=== PATIENT | male | born 1980 | race Caucasian/White ===

== ENCOUNTER 2018-08-11 01:31 | Outpatient (CLI) | payer OTHER, SELFPAY ==
--- NOTE | 2018-08-11 09:44 | DI.MRI_ITS ---
SYMPTOM/DIAGNOSIS: LUMBAR STRAIN WITH JERED LE TINGLING TO FOOT MRI LUMBAR SPINE: There are no prior comparison exams. T1, T2 and stir sagittal, T1 and T2 axial sequences were performed. The vertebral bodies are well maintained in height. The marrow signal is normal. Conus medullaris appears intact. At T-12, L1 there is a small focal disc protrusion slightly eccentric toward the left. There is mild disc bulging at L1-2. The L2-3 and L3-4 discs have a normal appearance. At L4-5, there is mild posterior disc bulging. At L5-S1, there is mild broad-based disc bulging slightly eccentric toward the left. There is no significant neural foraminal narrowing or central canal stenosis at any level. There are no significant facet joint degenerative changes. IMPRESSION: Mild degenerative disc changes at T12-L1, L1-2, L4-5 and L5-S1.
== END 2018-08-11 01:51 ==
PROVIDERS: Visit Provider Nurse Practitioner Family
DX: S39.012A Strain of muscle, fascia and tendon of lower back, initial encounter (principal); R20.2 Paresthesia of skin; M51.37 Other intervertebral disc degeneration, lumbosacral region
CPT/HCPCS: 72148

== ENCOUNTER 2019-05-07 17:14 | Emergency (ER) | payer OTHER, SELFPAY ==
[2019-05-07 17:41] VITALS: BP 136/83; PULSE 79; RESP 16; TEMP 36.4; O2SAT 97
[2019-05-07 18:48] LABS: Abs Immature Grans 0.03 k/cumm (0.0-0.09); Absolute Basophil Count 0.06 k/cumm (0.0-0.2); Absolute Eosinophil Count 0.35 k/cumm (0.0-0.7); Absolute Lymphocyte Count 2.92 k/cumm (1.2-3.4); Absolute Monocyte Count 0.77 k/cumm (0.11-0.7); Absolute Neutrophil Count 6.96 k/cumm (1.2-6.7); Basophils % 0.5; Eosinophils % 3.2; HCT 47.4 % (40.0-50.0); HGB 16.6 g/dL (13.5-17.5); Immature Grans % 0.3; Lymphocytes % 26.3; Mean Corpuscular Hemoglobin 31.6 pg (27.0-33.0); Mean Corpuscular Volume 90.1 fL (80-95); Monocytes % 6.9; Neutrophils % 62.8; Platelet Count 257 x1000/uL (130-400); RBC 5.26 m/cumm (4.50-6.00); RBC Distribution Width 13.6 % (11.8-14.1); White Blood Cell Count 11.09 k/cumm (4.4-10.8)
[2019-05-07] MEDS: Omnipaque 350 MG/ML 100 ML BTL IJ (18:57)
[2019-05-07 19:02] LABS: ALT 63 U/L (12-78); AST 31 U/L (15-37); Albumin 3.9 g/dL (3.4-5.0); Alkaline Phosphatase 99 U/L (46-116); Anion Gap 9.4 mmol/L (3-11); BUN 13 mg/dL (7-18); Bilirubin, Total 0.8 mg/dL (0.2-1.0); CO2 27.6 mmol/L (21.0-32.0); Calcium 8.5 mg/dL (8.5-10.1); Chloride 104 mmol/L (98-107); Glucose 96 mg/dL (70-100); Potassium 3.8 mmol/L (3.5-5.1); Sodium 141 mmol/L (136-145)
[2019-05-07] MEDS: Lidocaine 2% Viscous 15 ML CUP PO (19:04)
--- NOTE | 2019-05-07 19:07 | DI.CT_ITS ---
SYMPTOM/DIAGNOSIS: FB SENSATION AND THROAT PAIN X [address] NECK: CT scan of the neck was performed following the uneventful administration of intravenous contrast material. There are no priors. The visualized intracranial structures are unremarkable as are the orbits and retro orbital soft tissues. There is mild mucosal thickening seen in the maxillary sinuses bilaterally. The remaining visualized paranasal sinuses are clear as are the mastoid air cells. No fluid levels are present. There is mild mucosal thickening seen in the oral pharynx and hypopharynx with prominence of the uvula which appears edematous. The nasopharynx and larynx appear unremarkable. The retropharyngeal space is unremarkable. The submandibular, parotid and thyroid glands are all unremarkable. The lung apices are clear. No significant cervical adenopathy is appreciated. No focal fluid collection or soft tissue mass is appreciated. No acute osseous abnormality is identified. No radiopaque foreign bodies are identified. IMPRESSION: No evidence of a radiopaque foreign body 2. Mild mucosal thickening involving the oral pharynx, hypopharynx with an edematous appearing uvula. This may represent an acute pharyngitis. No focal fluid collection is seen to suggest abscess.
--- NOTE | 2019-05-07 19:59 | DI.VRAD_ITS ---
EXAM: CT Neck With Contrast EXAM DATE/TIME: 05/07/2019 6:36 PM CLINICAL HISTORY: 38 years old, male; Other: Fb sensation and throat pain [id number] TECHNIQUE: Imaging protocol: Axial computed tomography images of the neck with intravenous contrast. Radiation optimization: All CT scans at this facility use at least one of these dose optimization techniques: automated exposure control; mA and/or kV adjustment per patient size (includes targeted exams where dose is matched to clinical indication); or iterative reconstruction. Contrast material: [id number]; Contrast volume: 100 ml; Contrast route: IV LT AC 20G; COMPARISON: No relevant prior studies available. FINDINGS: Orbits: The globes and intraorbital structures appear grossly intact. Sinuses: There is minimal mucoperiosteal thickening at the floor of the right maxillary sinus. Otherwise, the paranasal sinuses appear clear. Nasopharynx: The nasopharynx appears normal. Oropharynx: The oropharynx appears normal. There is mild symmetric prominence of the tonsillar lymph nodes. There is mild circumferential mucosal thickening in the oropharynx. Hypopharynx: There is mild circumferential mucosal thickening in the hypopharynx. Larynx: The epiglottis appears normal. The larynx appears normal. Retropharyngeal space: No retropharyngeal fluid collection is demonstrated. Submandibular/Parotid glands: The submandibular salivary glands and parotid glands appear symmetric. Thyroid: The thyroid cartilage, cricoid cartilage, and arytenoid cartilages appear intact. Lymph nodes: No pathologically enlarged cervical chain lymph nodes are demonstrated. Trachea: The trachea appears normal. Esophagus: The visualized portion of the proximal esophagus appears normal. Lungs: Lung apices appear clear. Vasculature: The examination was not tailored to evaluate the vascular structures of the neck; however, the carotid arteries and jugular veins appear grossly patent, as seen. The vertebral arteries are partially obscured and not well evaluated but appear grossly patent, as seen. Auditory system: The middle ear cavities appear clear. Mastoid air cells: The mastoid air cells appear clear. Bones/joints: The hyoid bone appears intact. No acute fracture is identified. Soft tissues: The uvula appears edematous. IMPRESSION: 1. No radiopaque foreign body identified. 2. Mild circumferential mucosal thickening in the oropharynx and hypopharynx. Edematous appearing uvula. Acute pharyngitis could have this appearance. Clinical correlation and correlation with physical exam recommended. 3. Mild symmetric prominence of the tonsillar lymph nodes. Prior or recurrent tonsillitis can produce this appearance although acute tonsillitis could have an identical appearance. Dictated and Authenticated by: Miguel Vera MD. Ordering:KAYLEY Goodman MD
--- NOTE | 2019-05-07 20:20 | ED.GENADUL_ITS ---
Discharge Plan Disposition Patient Disposition: HOME Condition: Good Discharge Details Chief Complaint: Sorethroat Clinical Impression: Acute sore throat, Globus sensation Primary Care Provider: None,None ED Provider: Rex Ramos Home Meds and New Rx's Prescriptions: No Action ibuprofen 800 mg tablet 800 mg PO TID Qty: 42 RF: 0 acetaminophen 500 mg tablet 1,000 mg PO TID PRN (Reason: pain) Qty: 1 RF: 0 cyclobenzaprine 5 mg tablet 5 mg PO TID PRN (Reason: muscle spasm) Qty: 28 RF: 0 omeprazole 20 MG tablet,delayed release (DR/EC) 20 mg PO DAILY RF: 0 Discharge Instructions Additional Instructions: Your CT scan shows no evidence of significant foreign body or mass in your lower throat. Does show some inflammation in your upper throat but your strep test is negative. I do feel that you need to be seen by an ear nose throat doctor for f urther visualization of your throat and airway. We will set up a follow-up for you with them. If you notice any worsening of your symptoms, or any new symptoms such as vomiting, diarrhea, fever, chills, shortness of breath, chest pain, numbness, weakness, or fainting , please return immediately to the emergency department for reevaluation. Please follow up with your primary care provider as soon as possible for reassessment and reevaluation. As always, it was a pleasure participating in your medical care today. Discharge Data Discharge Date/Time-TO BE ENTERED AT DEPARTURE: 05/07/19 20:30 Medical Decision Making This is a pleasant 38-year-old male with a past medical history of chronic tobacco and oral tobacco use. He presents today for one-month of sore throat and globus sensation. He is able to eat and drink well but states that he does have to take slightly smaller bites. He describes the pain as being just below the vocal admit to some chronic enlargement of his tonsils but states that he has no issues there at this time. Physical exam demonstrates slight enlargement of tonsils, no tonsillar exudates, no erythema in the posterior oropharynx. Neck exam demonstrates an otherwise clear airway, no stridor, no evidence of Roque's angina. Symptoms as described by the patient are just below the vocal cords. Because of the location of the symptoms, and the chronicity mass and tumor was certainly on the differential. CT scan with contrast was ordered demonstrates no evidence of acute process in the area of concern. Virtual radiology does make mention of slight tonsillar and uvular enlargement, however this does not correlate clinically with an acute episode of upper pharyngitis. His symptoms on exam are unremarkable in the posterior oropharynx at this time. And on reassessment of the patient he continues to make absolutely clear that he has no symptoms of pain or difficulty swallowing up they are in that region. With the benign imaging, I do feel that further evaluation is indicated. With a notable proximal component of his symptoms I do feel that follow-up with the ENT would be most beneficial first or evaluation with fiberoptic scoping. recommend continued soft diet, NSAIDs as needed, Cessation of tobacco products. I have extensively reviewed the treatment plan and discharge instructions with the patient. I have addressed all patient concerns at this time. The patient was made aware of what symptoms to monitor for that would warrant a return to the emergency department. Discussed the plan with the patient, they demonstrate verbal understanding and agreement with our assessment and plan at this time. FINDINGS: Orbits: The globes and intraorbital structures appear grossly intact. Sinuses: There is minimal mucoperiosteal thickening at the floor of the right maxillary sinus. Otherwise, the paranasal sinuses appear clear. Nasopharynx: The nasopharynx appears normal. Oropharynx: The oropharynx appears normal. There is mild symmetric prominence of the tonsillar lymph nodes. There is mild circumferential mucosal thickening in the oropharynx. Hypopharynx: There is mild circumferential mucosal thickening in the hypopharynx. Larynx: The epiglottis appears normal. The larynx appears normal. Retropharyngeal space: No retropharyngeal fluid collection is demonstrated. Submandibular/Parotid glands: The submandibular salivary glands and parotid glands appear symmetric. Thyroid: The thyroid cartilage, cricoid cartilage, and arytenoid cartilages appear intact. Lymph nodes: No pathologically enlarged cervical chain lymph nodes are demonstrated. Trachea: The trachea appears normal. Esophagus: The visualized portion of the proximal esophagus appears normal. Lungs: Lung apices appear clear. Vasculature: The examination was not tailored to evaluate the vascular structures of the neck; however, the carotid arteries and jugular veins appear grossly patent, as seen. The vertebral arteries are partially obscured and not well evaluated but appear grossly patent, as seen. Auditory system: The middle ear cavities appear clear. Mastoid air cells: The mastoid air cells appear clear. Bones/joints: The hyoid bone appears intact. No acute fracture is identified. Soft tissues: The uvula appears edematous. IMPRESSION: 1. No radiopaque foreign body identified. 2. Mild circumferential mucosal thickening in the oropharynx and hypopharynx. Edematous appearing uvula. Acute pharyngitis could have this appearance. Clinical correlation and correlation with physical exam recommended. 3. Mild symmetric prominence of the tonsillar lymph nodes. Prior or recurrent tonsillitis can produce this appearance although acute tonsillitis could have an identical appearance. Thank you for allowing us to participate in the care of your patient. Dictated and Authenticated by: Miguel Vera MD [facility] General Date/Time Provider Initiated Documentation: 05/07/19 17:48 . [facility] Narrative: This is a pleasant 38-year-old male who presents for 1 month of sore t hroat, and globus sensation in his lower throat. Patient states that the symptoms have been continuous, but have been slightly worsening. He feels that he has been eating less because of the sensation. but he is able to get down solids and liquids fine without any significant difficulty. He denies any fevers, chest pain, burning sensation in his chest, headache, numbness, tingling, or weakness. He denies any history or family history of significant cardiac disease. He has taken some Tylenol and Motrin and this is not significantly improved his symptoms. He does smoke tobacco and chew tobacco as well. The patient is very clear to differentiate that he does not have any pain in his posterior oropharynx. He denies any runny nose or congestion symptoms. He does state that he has a history of slight tonsillar enlargement, but denies any problems currently in that area. He has no other complaints at this time. No other modifying factors. Related Data Home Medications Medication Instructions Recorded Confirmed omeprazole 20 mg PO DAILY 07/31/13 08/05/18 acetaminophen 500 mg tablet 1,000 mg PO TID PRN #1 tab 07/10/18 08/05/18 cyclobenzaprine 5 mg tablet 5 mg PO TID PRN #28 tab 07/10/18 08/05/18 ibuprofen 800 mg tablet 800 mg PO TID #42 tab 07/10/18 08/05/18 Previous Rx's Medication Instructions Recorded acetaminophen 500 mg tablet 1,000 mg PO TID PRN #1 tab 07/10/18 cyclobenzaprine 5 mg tablet 5 mg PO TID PRN #28 tab 07/10/18 ibuprofen 800 mg tablet 800 mg PO TID #42 tab 07/10/18 Allergies Allergy/AdvReac Type Severity Reaction Status Date / Time No Known Allergies Allergy Unverified 05/07/19 17:43 General Stated Complaint: Sorethroat NENITA: 4 Review of Systems Review of Systems All systems reviewed & are unremarkable except as noted in HPI and below PFSH Surgical History Cholecystectomy (04/24/12) Social History (Updated 08/27/18 @ 10:19 by Jenny Milton NP) Smoking/Tobacco Use Status: Current every day Drug use: Never Household members: spouse 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 3.ENT: Atraumatic external nose and ears. Moist MM. Neck: Symmetric, trachea midline, No thyromegaly. Minimal tonsillar enlargement bilaterally, no significant erythema, or tonsillar exudates in the posterior oropharynx. Neck demonstrates no appreciable mass. No concerning evidence of ludwigs angina or asymmetry. Patient demonstrates good movement of cervical neck. There is no nuchal rigidity, no nuchal tenderness. Patient is able to flex the neck without any difficulty or significant pain. Negative Kernig's and Brudzinski sign. When patient points to the pain in the sensation he points directly to the area below the vocal cords. 4.CVS: +S1/S2, No murmurs or gallops. Peripheral pulses 2+ and equal in all extrem ities. Brisk capillary refill in all extremities. 5.RESP: Unlabored respiratory effort. Clear to auscultation bilaterally. No wheezes rales or rhonchi, no stridor 6.GI: Soft, Nontender/Nondistended, No hepatosplenomegaly. No guarding or jeannine ound. 7.MSK: Normocephalic/Atraumatic, Extremities w/o deformity or ttp No cyanosis or clubbing, Normal movement of all extremities 8.Skin: Warm, Dry. No rashes or lesions. 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 Sensation grossly intact, no focal neurologic deficits. 10.Psych: (AAO) x3. Appropriate mood and affect Course Vital Signs Temperature 36.4 C L 05/07/19 17:41 Pulse 79 05/07/19 17:41 Respiratory Rate 16 05/07/19 17:41 Blood Pressure 136/83 05/07/19 17:41 Pulse Oximetry 97 05/07/19 17:41 Temperature 36.4 C L 05/07/19 17:41 Temperature Source Skin 05/07/19 17:41 Pulse 79 05/07/19 17:41 Respiratory Rate 16 05/07/19 17:41 Respiratory Effort 05/07/19 19:20 Blood Pressure 136/83 05/07/19 17:41 Blood Pressure Position Sitting 05/07/19 17:41 Pulse Oximetry 97 05/07/19 17:41 Oxygen Delivery Method Room Air 05/07/19 17:41 Oxygen Flow Rate 0 05/07/19 17:41 Pain Level 5 05/07/19 17:41 Comment 05/07/19 17:41 Lab/Test Results Lab/Test Results: 05/07/19 17:45 Pharynx Streptococcus Screen (FABIAN) - Pending Laboratory Tests Range/Units 05/07/19 05/07/19 18:42 18:42 WBC (4.4-10.8) k/cumm 11.09 H RBC (4.50-6.00) m/cumm 5.26 Hgb (13.5-17.5) g/dL 16.6 Hct (40.0-50.0) % 47.4 MCV (80-95) fL 90.1 MCH (27.0-33.0) pg 31.6 MCHC (32.0-36.0) g/dL 35.0 RDW (11.8-14.1) % 13.6 Plt Count (130-400) x1000/uL 257 MPV (8.0-11.0) fL 10.0 Immature Gran % 0.3 Neutrophils % 62.8 Lymphocytes % 26.3 Monocytes % 6.9 Eosinophils % 3.2 Basophils % 0.5 Absolute Neutrophils (1.2-6.7) k/cumm 6.96 H Absolute Lymphocytes (1.2-3.4) k/cumm 2.92 Absolute Monocytes (0.11-0.7) k/cumm 0.77 H Absolute Eosinophils (0.0-0.7) k/cumm 0.35 Absolute Basophils (0.0-0.2) k/cumm 0.06 Sodium (136-145) mmol/L 141 Potassium (3.5-5.1) mmol/L 3.8 Chloride (98-107) mmol/L 104 Carbon Dioxide (21.0-32.0) mmol/L 27.6 Anion Gap (3-11) mmol/L 9.4 BUN (7-18) mg/dL 13 Creatinine (0.70-1.30) mg/dL 1.10 Estimated GFR/1.73 m2 (mL/min/1.73m2) >= 60.00 Glucose (70-100) mg/dL 96 Calcium (8.5-10.1) mg/dL 8.5 Total Bilirubin (0.2-1.0) mg/dL 0.8 AST (15-37) U/L 31 ALT (12-78) U/L 63 Alkaline Phosphatase (46-116) U/L 99 Total Protein (6.4-8.2) g/dL 8.0 Albumin (3.4-5.0) g/dL 3.9 POC Strep Test-RICKY(Rapid) Start: 05/07/19 17:43 Freq: Status: Active Protocol: Document 05/07/19 18:40 CT (Rec: 05/07/19 18:40 CT [id number]) Strep test-RICKY(Rapid)-POC POC-Strep test-RICKY (Rapid) Negative POC-Strep test-RICKY (Rapid) Negative
[2019-05-07 20:34] VITALS: BP 136/84; PULSE 72; RESP 16; O2SAT 96
== END 2019-05-07 20:30 | disposition home or self-care (01) ==
PROVIDERS: Emergency Provider Student in an Organized Health Care Education/Training Program
DX: J02.9 Acute pharyngitis, unspecified (principal); F45.8 Other somatoform disorders
CPT/HCPCS: 36415; 70491; 80053; 87880; 99285; 85025; 87081; 99284; J3490

== ENCOUNTER 2019-09-24 07:56 | Emergency (ER) | payer OTHER, SELFPAY ==
[2019-09-24 07:59] VITALS: BP 149/83; PULSE 115; RESP 15; TEMP 37; O2SAT 100
--- NOTE | 2019-09-24 08:14 | ED.GENADUL_ITS ---
Discharge Plan Disposition Patient Disposition: HOME Condition: Stable Discharge Details Chief Complaint: Fever Clinical Impression: URI (upper respiratory infection), Chills Primary Care Provider: Vania Ghotra ED Provider: Mulugeta Chaidez Home Meds and New Rx's Prescriptions: Continued pantoprazole 40 mg tablet,delayed release (DR/EC) 40 mg PO DAILY RF: 0 lisinopril 5 mg tablet 5 mg PO DAILY Qty: 90 RF: 1 Discharge Instructions Additional Instructions: drink fluids to stay hydrated if you are not better by Saturday follow up with your primary care provider if you feel more ill, have shortness of breath or persistent vomit return to the emergency department Medical Decision Making 38 yo male with hx of gerd and htn comes in with a day of feeling subjective fevers, chills and general weakness. He states around NEw years he had similar sympoms but felt better in 2 days but had recurrent symptoms starting yesterday. HAsn't actually checked his temp. Denies severe headaches, neck stiffness, rashes, recent travel, vomit, urinary symptoms, changes in bowels, ivdu, cough. He is in no distress on exam, no meningismus, normal oropharynx, no murmurs, no rashes ,clear lungs. Could be simple uri but will obtain lab work to eval for anemia and also cxr to eval for pna and check for influenza. Has no findings to suggest tank filler infection and is afebrile here and appears well ssytemically so doubt sepsis. pt's labs and imaging show no significant pathology, I suspect viral uri. Remai ns hd stable. Will d/c home advised if not better by next week see pcp and return precautions given Differential Diagnosis Differential Diagnosis: pna, uri, influenza Medical Records Medical records reviewed: Yes I reviewed the patient's medical records. Imaging Data Radiologic Study: Attestation: I personally reviewed and interpreted this imaging study as follows: Imaging: X-Ray My impression: no acute findings Lab Data Lab results reviewed: Yes I reviewed the patient's lab results. HPI General Mode of arrival: ambulatory . Date/Time Provider Initiated Documentation: 09/24/19 07:58 . Limitations to Documentation: no limitations . Information obtained by: patient . History of Present Illness 38 year old M presents to the emergency department with the chief complaint of chills, described as moderate, and it has been constant. No relieving factors improve symptom(s), No exacerbating factors reported . Patient did receive the following treatments prior to arrival, none Related Data Home Medications Medication Instructions Recorded Confirmed lisinopril 5 mg tablet 5 mg PO DAILY #90 tab 08/05/19 09/24/19 pantoprazole 40 mg tablet,delayed 40 mg PO DAILY 08/05/19 09/24/19 release Previous Rx's Medication Instructions Recorded lisinopril 5 mg tablet 5 mg PO DAILY #90 tab 08/05/19 Allergies Allergy/AdvReac Type Severity Reaction Status Date / Time No Known Allergies Allergy Unverified 09/24/19 08:02 General Stated Complaint: Fever NENITA: 3 Review of Systems All systems reviewed & are unremarkable except as noted in HPI and below Cardiovascular Cardiovascular: Denies chest pain and Denies dyspnea Respiratory Respiratory: Denies cough and Denies dyspnea Gastrointestinal Gastrointestinal: Denies abdominal pain, Denies nausea and Denies vomiting Musculoskeletal Musculoskeletal: Denies joint swelling PFS Social History Smoking/Tobacco Use Status: Current every day Smokeless tobacco user: chewing tobacco Alcohol Intake: current Alcohol Intake frequency: a few times a week Drug use: Never Substance use type: does not use Adopted: No Caregiver/Support person: No Foster care: No Household members: spouse and children Housing: house Number of Children: 2 Communication Needs: Corrective Lenses Education Level: high school Details: 11th Do you need help understanding health information?: Rarely 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, [employer] Sexually active: Yes Do you think of yourself as: straight/heterosexual Current gender identity: male What type of physical activity do you participate in: walking and other Details: lots of walking at work Seatbelt use: sometimes Helmet use: Yes Drive intox or ride w/intox van driver: No Water heater temp set <120 deg: No Working smoke detector in home: Yes Fire extinguisher in home: Yes Carbon monox detector in home: Yes Firearms in home: Yes Firearms unloaded and locked: Yes Do you feel safe at home: Yes Do you feel safe in your relationship?: Yes Exam Const General: no acute distress Orientation: alert HENMT Head: normal to inspection Ears: external ears normal General nose exam: external nose normal Mouth: moist mucous membranes Eyes General: appearance normal, both eyes and all related structures Neck Neck: normal visual inspection Resp Effort & Inspection: normal respiratory effort and able to speak in complete sentences Cardio Rate: regular rate Skin General skin exam: no rashes or lesions noted Neuro General: alert and oriented x3 Extrem General: normal to inspection Psych Mental Status: mental status grossly normal Course Vital Signs Vital signs: Vital Signs Temperature 37.0 C 09/24/19 07:59 Pulse 115 H 09/24/19 07:59 Respiratory Rate 15 09/24/19 07:59 Blood Pressure 149/83 H 09/24/19 07:59 Pulse Oximetry 100 09/24/19 07:59 Temperature 37.0 C 09/24/19 07:59 Temperature Source Oral 09/24/19 07:59 Pulse 115 H 09/24/19 07:59 Respiratory Rate 15 09/24/19 07:59 Respiratory Effort Non-Labored 09/24/19 08:02 Blood Pressure 149/83 H 09/24/19 07:59 Blood Pressure Position Sitting 09/24/19 07:59 Pulse Oximetry 100 09/24/19 07:59 Oxygen Delivery Method Room Air 09/24/19 07:59 Oxygen Flow Rate 0 09/24/19 07:59 Pain Level 5 09/24/19 07:59
[2019-09-24] MEDS: Normal Saline Flush 10 ML SYR IVP (08:31)
[2019-09-24] MEDS: Acetaminophen 500 MG TAB 1000 MG PO (08:31)
--- NOTE | 2019-09-24 08:33 | DI.RAD_ITS ---
EXAM: XR CHEST 2V PA LATERAL XR CHEST 2V PA LATERAL CLINICAL HISTORY: fever fever TECHNIQUE: 2D digital imaging was performed. COMPARISON: RIGHT RIBS PA CXR-3 VIEWS from 08/17/2017 FINDINGS: The heart is not enlarged. The lungs are clear and well expanded. No pleural effusion seen. Mediastin al contours appear intact. IMPRESSION: Normal chest
[2019-09-24 08:36] LABS: BE (Venous) 2.6 mmol/L (-3-3); HCO3 (Venous) 27 mmol/L (22-28); O2 Sat (Venous) 76 % (70-80); TCO2 (Venous) 23 mmol/L (22-29); pCO2 (Venous) 42 mm/Hg (34-47); pH (Venous) 7.41 (7.32-7.43); pO2 (Venous) 38 mm/Hg (28-44)
[2019-09-24 08:39] LABS: Lactate 0.9 mmol/L (0.6-1.4)
[2019-09-24 08:41] LABS: Abs Immature Grans 0.05 k/cumm (0.0-0.09); Absolute Basophil Count 0.04 k/cumm (0.0-0.2); Basophils % 0.3; Eosinophils % 1.6; HCT 46.8 % (40.0-50.0); HGB 16.3 g/dL (13.5-17.5); Immature Grans % 0.4 %; Mean Corp. HGB Concentration 34.8 g/dL (32.0-36.0); Mean Corpuscular Hemoglobin 30.9 pg (27.0-33.0); Mean Corpuscular Volume 88.8 fL (80-95); Mean Platelet Volume 9.1 fL (8.0-11.0); Neutrophils % 76.7; Platelet Count 261 x1000/uL (130-400); RBC 5.27 m/cumm (4.50-6.00); RBC Distribution Width 13.7 % (11.8-14.1); White Blood Cell Count 12.83 k/cumm (4.4-10.8)
[2019-09-24 08:43] LABS: Absolute Eosinophil Count 0.21 k/cumm (0.0-0.7); Absolute Neutrophil Count 9.84 k/cumm (1.2-6.7)
[2019-09-24 08:53] LABS: ALT 52 U/L (16-63); AST 21 U/L (15-37); Albumin 3.8 g/dL (3.4-5.0); Alkaline Phosphatase 91 U/L (46-116); Anion Gap 8.2 mmol/L (3-11); BUN 11 mg/dL (7-18); CO2 27.8 mmol/L (21.0-32.0); CREATININE 0.94 mg/dL (0.70-1.30); Calcium 8.5 mg/dL (8.5-10.1); Chloride 103 mmol/L (98-107); Glucose 99 mg/dL (74-106); Magnesium 1.9 mg/dL (1.8-2.4); Potassium 3.6 mmol/L (3.5-5.1); Sodium 139 mmol/L (136-145); Total Protein 7.9 g/dL (6.4-8.2)
== END 2019-09-24 09:20 | disposition home or self-care (01) ==
PROVIDERS: Emergency Provider Emergency Medicine; PCP Student in an Organized Health Care Education/Training Program
DX: J06.9 Acute upper respiratory infection, unspecified (principal); R68.83 Chills (without fever); I10 Essential (primary) hypertension
CPT/HCPCS: 80053; 82805; 87449; 99283; 71046; 83605; 83735; 85025

== ENCOUNTER 2019-12-22 09:08 | Outpatient (CLI) | payer OTHER, SELFPAY ==
[2019-12-26 00:05] LABS: SARS-CoV-2 RNA Undetected (Undetected); SARS-CoV-2 Specimen Source Nasopharynx
== END 2019-12-22 09:28 ==
PROVIDERS: Family Medicine; PCP Student in an Organized Health Care Education/Training Program; Visit Provider Student in an Organized Health Care Education/Training Program
DX: Z11.59 Encounter for screening for other viral diseases (principal)
CPT/HCPCS: U0003

== ENCOUNTER 2020-07-27 11:54 | Outpatient (REF) | payer OTHER, SELFPAY ==
[2020-07-27 19:49] LABS: Anion Gap 8.8 mmol/L (3-11); BUN 12 mg/dL (7-18); CO2 26.2 mmol/L (21.0-32.0); CREATININE 1.06 mg/dL (0.70-1.30); Calcium 8.7 mg/dL (8.5-10.1); Chloride 106 mmol/L (98-107); Glucose 111 mg/dL (74-106); Potassium 3.9 mmol/L (3.5-5.1); Sodium 141 mmol/L (136-145)
== END 2020-07-27 12:14 ==
LOC: LBN 11:54
PROVIDERS: PCP Student in an Organized Health Care Education/Training Program; Visit Provider Nurse Practitioner Adult Health
DX: I10 Essential (primary) hypertension (principal); R25.2 Cramp and spasm; Z79.1 Long term (current) use of non-steroidal anti-inflammatories (NSAID); Z86.39 Personal history of other endocrine, nutritional and metabolic disease
CPT/HCPCS: 80048; 83735

== ENCOUNTER 2022-04-25 12:59 | Outpatient (CLI) | payer OTHER, SELFPAY ==
--- NOTE | 2022-04-25 11:24 | DI.RAD_ITS ---
Exam(s) XR SHOULDER RT COMPLETE 2+V EXAM: XR SHOULDER RT COMPLETE 2+V CLINICAL HISTORY: evaluate joint space r/o bony path, [id number] , shoulder pain TECHNIQUE: COMPARISON: No exams were available for comparison FINDINGS: Five views were obtained. The cartilaginous joint space of the glenohumeral joint appears fairly wel l maintained. There is mild deformity of the inferior aspect of the glenoid which may represent dennis inal osteophyte formation. Humeral head appears well maintained. Acromioclavicular joint is unremar kable in appearance. IMPRESSION: Inferior glenoid deformity, degenerative versus remote post traumatic. No other significant findings RADIATION DOSE DELIVERED: Total DLP
== END 2022-04-25 13:19 ==
LOC: DI 13:00
PROVIDERS: PCP Student in an Organized Health Care Education/Training Program; Visit Provider Student in an Organized Health Care Education/Training Program
DX: I10 Essential (primary) hypertension (principal); K21.9 Gastro-esophageal reflux disease without esophagitis; M21.921 Unspecified acquired deformity of right upper arm; Z72.0 Tobacco use
CPT/HCPCS: 73030

== ENCOUNTER 2022-04-30 02:43 | Outpatient (CLI) | payer OTHER, SELFPAY ==
[2022-04-30 12:41] LABS: Anion Gap 9.3 mmol/L (3-11); BUN 13 mg/dL (7-18); CO2 25.7 mmol/L (21.0-32.0); CREATININE 1.1 mg/dL (0.70-1.30); Calcium 8.7 mg/dL (8.5-10.1); Chloride 107 mmol/L (98-107); Glucose 127 mg/dL (74-106); Potassium 3.8 mmol/L (3.5-5.1); Sodium 142 mmol/L (136-145)
== END 2022-04-30 02:44 | disposition home or self-care (01) ==
LOC: LBO 02:43
PROVIDERS: PCP Student in an Organized Health Care Education/Training Program; Visit Provider Student in an Organized Health Care Education/Training Program
DX: I10 Essential (primary) hypertension (principal); L40.9 Psoriasis, unspecified
CPT/HCPCS: 36415; 80048; 83036

== ENCOUNTER 2022-05-15 09:52 | Emergency (ER) | payer OTHER, SELFPAY ==
[2022-05-15 09:56] VITALS: BP 138/91; PULSE 80; RESP 18; TEMP 36.9; O2SAT 98
--- NOTE | 2022-05-15 10:30 | DI.RAD_ITS ---
Exam(s) XR KNEE RT 3V AP,LAT,ESTELA EXAM: XR KNEE RT 3V AP,LAT,ESTELA CLINICAL HISTORY: knee pain TECHNIQUE: COMPARISON: CR RIGHT KNEE 3 VIEWS from 12/11/2013 FINDINGS: Three views were obtained. There is mild narrowing of medial tibiofemoral cartilaginous joint space. There is apparent soft tissue swelling of the anterior aspect of the knee, in the prepatellar regio n. There are multiple small osseous bodies projected inferior to the patella, these were present on prior radiographs of November 2013. There is no evidence of acute fracture or dislocation. IMPRESSION: RADIATION DOSE DELIVERED: Total DLP
--- NOTE | 2022-05-15 11:44 | ED.GENADUL_ITS ---
Discharge Plan Disposition Patient Disposition: HOME Condition: Stable Discharge Details Clinical Impression: Acute pain of right knee Primary Care Provider: Vania Ghotra ED Provider: Kodak Santiago Home Meds and New Rx's Prescriptions: New diclofenac potassium 50 mg tablet 50 mg PO TID PRN (Reason: pain) Qty: 15 0RF Continued lisinopril 5 mg tablet 5 mg PO DAILY Qty: 90 1RF Hold Instructions: Changed by Provider Rx Instructions: Trial, start with half tab x 10 days cyclobenzaprine 10 mg tablet 10 mg PO HS PRN (Reason: shldr muscle spasm) Qty: 10 0RF amlodipine 2.5 mg tablet 2.5 mg PO DAILY Qty: 90 3RF pantoprazole 40 mg tablet,delayed release (DR/EC) 40 mg PO DAILY Qty: 90 3RF Discharge Instructions Instructions: Knee Pain (ED) Additional Instructions: Please take prescribed medication as directed you may also use [id number] acetaminophen as needed for any additional relief. Please rest over the next 2 days and slowly increase activity as tolerated. Please use hinged knee brace until your follow-up with orthopedics that was already scheduled. If you develop any new or worsening symptoms return to the emergency department for re assessment. Stand Alone Forms: Work Release Discharge Data Discharge Date/Time-TO BE ENTERED AT DEPARTURE: 05/15/22 12:13 Medical Decision Making Patient presenting to the emergency department for chief complaint of right knee pain. Patient denies any known injury or trauma. Patient has significant past medical history of surgical repair of the right knee due to trauma. Patient has been using NSAIDs with little benefit. He does state that he does significant weightbearing and ambulation for work. Physical exam shows significant tenderness to lateral right knee and infra patellar area mainly with flexion of the thigh. Ligamentous testing shows pain to the lateral ligament but no laxity is noted in the otherwise ligamentous testing is unremarkable. Given patient's history of trauma we will repeat imaging. No acute findings noted on imaging. Will place patient in a hinged knee brace and give patient some time off work to see if this helps with patient's symptoms. Patient otherwise states that he already has scheduled follow-up for reassessment of his knee injury 2 weeks with the [facility]. Will place patient on short course of diclofenac to see if that helps patient's symptoms better otherwise patient to return for new or worsening symptoms. Of notation patient did have significant psoriasis that was diffuse and did involve right knee. There is no underlying signs of infection, no joint swelling, no joint effusion to suspect a infected or septic joint at this time. After discussion of diagnosis and plan of care patient has no further needs, questions, or concerns and states clear understanding to return to the emergency department for any worsening symptoms. This documentation was generated using [employer] dictation system, please disregard any oddities of phrase or misspellings. Imaging Data Radiologic Study: Attestation: I personally reviewed and interpreted this imaging study as follows: Imaging: X-Ray Radiologist's impression: Three views were obtained. There is mild narrowing of medial tibiofemoral cartilaginous joint space. There is apparent soft tissue swelling of the anterior aspect of the knee, in the prepatellar region. There are multiple small osseous bodies projected inferior to the patella, these were present on prior radiographs of November 2013. There is no evidence of acute fracture or dislocation. HPI General Mode of arrival: ambulatory . Date/Time Provider Initiated Documentation: 05/15/22 10:33 . Limitations to Documentation: no limitations . Information obtained by: patient and RN notes reviewed . History of Present Illness 41 year old M presents to the emergency department with the chief complaint of Right knee pain, described as moderate and severe, with intensity rated at 7. Quality is described as aching and sharp, and is localized to the right and lower extremity. Patient reports no radiation. Patient started experiencing this week(s) (3) and it has been constant. Immobilization improves symptom(s), and Rest improves symptom(s), Movement worsens symptoms . Patient notes no other symptoms.. Patient did receive t he following treatments prior to arrival, NSAID Related Data Home Medications Medication Instructions Recorded Confirmed lisinopril 5 mg tablet 5 mg PO DAILY #90 tabs 08/05/19 05/15/22 pantoprazole 40 mg tablet,delayed 40 mg PO DAILY #90 tabs 05/15/21 05/15/22 release amlodipine 2.5 mg tablet 2.5 mg PO DAILY #90 tabs 04/25/22 05/15/22 cyclobenzaprine 10 mg tablet 10 mg PO HS PRN shldr muscle spasm 04/25/22 05/15/22 #10 tabs diclofenac potassium 50 mg tablet 50 mg PO TID PRN pain #15 tabs 05/15/22 Previous Rx's Medication Instructions Recorded lisinopril 5 mg tablet 5 mg PO DAILY #90 tabs 08/05/19 pantoprazole 40 mg tablet,delayed 40 mg PO DAILY #90 tabs 05/15/21 release amlodipine 2.5 mg tablet 2.5 mg PO DAILY #90 tabs 04/25/22 cyclobenzaprine 10 mg tablet 10 mg PO HS PRN shldr muscle spasm 04/25/22 #10 tabs diclofenac potassium 50 mg tablet 50 mg PO TID PRN pain #15 tabs 05/15/22 Allergies Allergy/AdvReac Type Severity Reaction Status Date / Time methotrexate AdvReac Severe sick Verified 05/15/22 10:00 lisinopril AdvReac Mild felt like Verified 05/15/22 10:00 environmental allergies; URI General Stated Complaint: Orthopedic NENITA: 4 Review of Systems Narrative: 6 systems reviewed and unremarkable except what is marked below. Constitutional Constitutional: Denies chills and Denies fever(s) Musculoskeletal Musculoskeletal: Reports as per HPI, Reports arthralgias and Reports stiffness PFSH All Active Problems (Updated 05/15/22 @ 12:02 by Kodak Santiago NP) Acute pain of right knee (Acute) Impingement syndrome of right shoulder (Acute) Infected tooth (Acute) Right shoulder pain (Acute) AC Joint & Posterior .. Limited ROM with lateral swing needed vs vertical flex/ext. Hypertension (Chronic) Hx elevated readings (last 2017) and today. Smoking, Fam Hx (+). Trial small does ACEi with possible increase PRN. Gastroesophageal reflux disease (Acute 07/20/14) Tobacco use (Chronic) Chewing tobacco to cut down on smoking, 05/2021 Cyst of hand (Acute) Encounter for screening for other viral diseases (Acute) Vague symptoms, incl cough, H/A .. COVID NEG, 12/21. Note needed for work stating quarantine was recommended until results/symptoms completed. Hx of bacterial pneumonia (Acute) Accepted PNA Vaccine today, 08/05/19 Back pain of lumbar region with sciatica (Acute) Lumbar Strain per [facility] (Fall 2017); Acts up @ times, but he works through it then stretches @ home. Hiatal hernia (Chronic 07/24/19) ON EGD at [facility] Tonsillar hypertrophy (Acute) Alcohol use (Acute) Psoriasis (Acute 07/20/14) Hx [facility] Derm (?).. poor tolerance of methotrexate (nausea, hyperthermia, ill). [ ] eligible for biologics? Palpitations (Acute 07/20/14) Holter : frequent PVC Medical History (Updated 05/15/22 @ 12:02 by Kodak Santiago NP) Deviated nasal septum Foot fracture, left 2013 Lumbar strain 2012 Right ear pain Tooth #2 repaired and resolved ear pain. 2 mos, thought it was dental, but tooth extraction did not help Surgical History Cholecystectomy (04/24/12) H/O right knee surgery (~11/2013) [facility] Family History Father Skin cancer Depression Hypertension Mother Hypertension Social History Smoking/Tobacco Use Status: Current every day Tobacco Type: cigarettes Smokeless tobacco user: chewing tobacco Smoking risk assessment performed?: Yes Alcohol Intake: current Alcohol Intake frequency: a few times a week Alcohol type: beer and hard liquor Drug use: Never Substance use type: does not use Adopted: No Caregiver/Support person: No Foster care: No Household members: spouse and children Housing: house Number of Children: 2 Communication Needs: Corrective Lenses Education Level: high school Details: 11th Do you need help understanding health information?: Rarely 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, [employer] Sexually active: Yes Do you think of yourself as: straight/heterosexual Current gender identity: male What type of physical activity do you participate in: walking and other Details: lots of walking at work Seatbelt use: sometimes Helmet use: Yes Drive 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 or ride w/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 Water heater temp set <120 deg: No Working smoke detector in home: Yes Fire extinguisher in home: Yes Carbon monox detector in home: Yes Firearms in home: Yes Firearms unloaded and locked: Yes Do you feel safe at home: Yes Do you feel safe in your relationship?: Yes Exam Const General: cooperative, no acute distress and not ill appearing Orientation: alert, awake and oriented x3 Resp Effort & Inspection: normal respiratory effort, able to speak in complete sentences and no respiratory distress Cardio Rate: regular rate Rhythm: regular rhythm Pulses: normal peripheral pulses Skin General skin exam: other (Diffuse psoriasis noted on multiple skin surfaces including affected knee) Neuro General: patient alert, patient awake, patient oriented x3, moves all extremities and no focal motor deficits Sensory Exam: no sensory deficits noted Extrem Right lower extremity: hip/thigh Details: abnormal ROM Details: pain with active ROM during Details: with flexion, knee Details: tenderness Location: of the lateral joint line and of the infrapatellar area, lower leg Details: no tenderness and ankle Details: normal ROM; no tenderness Course Vital Signs Vital signs: Vital Signs Temperature 36.9 C 05/15/22 09:56 Pulse 80 05/15/22 09:56 Respiratory Rate 18 05/15/22 09:56 Blood Pressure 138/91 H 05/15/22 09:56 Pulse Oximetry 98 05/15/22 09:56 Temperature 36.9 C 05/15/22 09:56 Temperature Source Temporal Artery Scan 05/15/22 09:56 Pulse 80 05/15/22 09:56 Respiratory Rate 18 05/15/22 09:56 Respiratory Effort 05/15/22 09:59 Blood Pressure 138/91 H 05/15/22 09:56 Blood Pressure Position Sitting 05/15/22 09:56 Pulse Oximetry 98 05/15/22 09:56 Oxygen Delivery Method Room Air 05/15/22 09:56 Oxygen Flow Rate 0 05/15/22 09:56 Pain Level 6 05/15/22 09:56 PAWSS Have you Been Recently Intoxicated or Drunk Within the Last 30 days?: No Have you Ever Experienced Previous Episodes of Alcohol Withdrawal?: No Have you ever Experienced Withdrawal Seizures?: No Have you ever Experienced Delirium Tremens(DT)s?: No Have you ever undergone Alcohol Rehabilitation Treatment (i.e, inpt ot outpatient treatment programs)?: No Have you ever Experienced Blackouts?: Yes Have you ever Combined Alcohol with other Downers within the last 90 days?: No Have you ever Combined Alcohol with any other Substance of Abuse during the last 90 days?: No Positive Blood Alcohol level on Presentation? [PCS.BAL]: No Evidence of Increased Autonomic Activity (i.e. HR>120, tremor, sweating, agitation, nausea)?: No Result: 1
== END 2022-05-15 12:13 | disposition home or self-care (01) ==
PROVIDERS: Emergency Provider Nurse Practitioner Family; PCP Student in an Organized Health Care Education/Training Program
DX: M25.561 Pain in right knee (principal); F17.210 Nicotine dependence, cigarettes, uncomplicated
CPT/HCPCS: 29505; 73562; 99283; 99282

== ENCOUNTER 2022-06-19 01:14 | Outpatient (CLI) | payer OTHER, SELFPAY ==
--- NOTE | 2022-06-19 07:00 | DI.MRI_ITS ---
Exam(s) MR UPPER JOINT RT WO EXAM: MR UPPER JOINT RT WO CLINICAL HISTORY: R SHOULDER PAIN,biceps tendinopathy,m25.511,m67.921 TECHNIQUE: Multiplanar multisequence MRI of the shoulder was performed. COMPARISON: CR XR SHOULDER RT COMPLETE 2+V from 04/25/2022 FINDINGS: MARROW:There is no evidence of fracture, Hill-Sachs deformity, nor ominous osseous lesions. ROTATOR CUFF MECHANISM: AC JOINT/ACROMIUM: There are no significant degenerative changes in the AC joint. No impingement at this level. Undersurface of the acromion is flat.. There is no evidence of os acromiale. Supraspinatus: Intact. No evidence of tear nor muscle atrophy. Sliver of fluid noted in the subacro mial-subdeltoid bursa. Infraspinatus: Intact. No evidence of tear nor muscle atrophy. Teres Minor: Intact. No evidence of tear nor muscle atrophy. Subscapularis/anterior cuff: Intact. No abnormal signal at the level of the multipennate insertional fibers. No significant tear nor atrophy. BICEPS TENDON: Normally position in the intertubercular groove. No evidence of tear. Small amount of fluid in the tendon sheath. No loose body evident in the tendon sheath. LABRUM: No evidence of SLAP tear. Posterior labrum appears intact. Anterior labrum intact. On the anteroinferior aspect of the osseous glenoid there are degenerative subarticular cysts as well as with some extension into the adjacent soft tissues. Consistent with element of anterior-inferior labral tearing and septated paralabral cyst at this level. There is some bone edema evident in the osseous glenoid. The inferior glenohumeral ligament appears intact. GLENOHUMERAL JOINT: No joint effusion nor obvious loose intra-articular bodies. No chondral defects. No osteophytes. The inferior glenohumeral ligament is intact. QUADRILATERAL SPACE: No evidence of mass in the region of the axillary nerve and dorsal circumflex hu meral vessels. Visualized triceps muscle at this level appears unremarkable. IMPRESSION: 1. No evidence of rotator cuff tendinitis nor tearing nor atrophy. There is a sliver of fluid in the subacromial bursa which may indicate an element of mild bursitis. There are no degenerative changes in the AC joint. 2. No evidence of biceps tendon tear nor displacement. Also no evidence of SLAP tear. 3. There are both degenerative subarticular cysts in the anteroinferior osseous glenoid and multiple septated small cysts in the medially adjacent soft tissue. Probably conglomeration of paralabral cys ts. Abnormal anteroinferior labrum evident. There does not to be appear to be an obvious bony Banka rt lesion nor Hill-Sachs deformity. However, there is some bone edema in the osseous glenoid also no yared at this level. There is no abnormal bone edema in the humeral head. Recommend follow-up CT scan to determine if there is a subtle bony Bankart lesion here in addition to the above findings DATA REPOSITORY:
== END 2022-06-19 01:34 ==
LOC: DI 01:14
PROVIDERS: PCP Student in an Organized Health Care Education/Training Program; Visit Provider Student in an Organized Health Care Education/Training Program
DX: M25.511 Pain in right shoulder (principal); M67.811 Other specified disorders of synovium, right shoulder; M75.81 Other shoulder lesions, right shoulder; M25.811 Other specified joint disorders, right shoulder
CPT/HCPCS: 73221

== ENCOUNTER 2022-10-30 16:23 | Outpatient (CLI) | payer OTHER, SELFPAY ==
--- NOTE | 2022-10-30 15:45 | DI.RAD_ITS ---
Exam(s) XR HAND RT COMPLETE EXAM: XR HAND RT COMPLETE CLINICAL HISTORY: eval swelling; r/o joint erosion M79.641 PAIN L40.50PSORIASIS L40.9 M79.89. TECHNIQUE: 2D digital imaging was performed. COMPARISON: No exams were available for comparison FINDINGS: 3 views No evidence of fracture or dislocation. No abnormal soft tissue calcifications. There is deformity at the midshaft of the 2nd metacarpal which is most probably healed fracture site. There are no erosions nor obvious degenerative changes in the articulations of the hand and fingers. Bone density is normal. No osseous lesions. IMPRESSION: No significant osseous findings. No osseous lesions. No erosions. DATA REPOSITORY: RADIATION DOSE DELIVERED:
--- NOTE | 2022-10-30 15:45 | DI.RAD_ITS ---
Exam(s) XR FOOT RT COMPLETE EXAM: XR FOOT RT COMPLETE CLINICAL HISTORY: evaluate prox 5th toe swelling; r/o bony path M79.671 PAIN L40.50 PSORIASIS. TECHNIQUE: 2D digital imaging was performed. COMPARISON: No exams were available for comparison FINDINGS: 3 views No evidence of fracture or diastasis of the Lisfranc joint. Bone density is normal. No osseous lesi ons. No erosions. No pes planus. No inferior calcaneal spur. No enthesophytes. No erosions. No radiopaque foreign body. IMPRESSION: No significant osseous findings. DATA REPOSITORY: RADIATION DOSE DELIVERED:
== END 2022-10-30 16:43 ==
LOC: DI 16:24
PROVIDERS: PCP Student in an Organized Health Care Education/Training Program; Visit Provider Student in an Organized Health Care Education/Training Program
DX: L40.50 Arthropathic psoriasis, unspecified (principal); M79.641 Pain in right hand; M79.89 Other specified soft tissue disorders; M79.671 Pain in right foot; S92.911A Unspecified fracture of right toe(s), initial encounter for closed fracture
CPT/HCPCS: 73130; 73630

== ENCOUNTER 2022-11-12 02:57 | Outpatient (CLI) | payer OTHER, SELFPAY ==
[2022-11-12 14:22] LABS: Lab Add On Test DONE
[2022-11-12 14:37] LABS: Abs Immature Grans 0.12 10^3/uL (0.0-0.06); Absolute Lymphocyte Count 1.79 10^3/uL (1.2-3.4); Basophils % 0.5; Eosinophils % 0.5; HCT 46.7 % (40.0-50.0); HGB 16.5 g/dL (13.5-17.5); Immature Grans % 0.9; Lymphocytes % 13.9; MCH 30.8 pg (27.0-33.0); MCHC 35.3 % (32.0-36.0); MCV 87 fL (80-95); MPV 9.9 fL (8.0-11.0); Neutrophils % 80.2; Platelet Count 276 10^3/uL (130-400); RBC 5.35 10^6/uL (4.36-5.78); RDW 13.7 % (11.8-14.1); RDW-SD 43.1 fL; WBC 12.85 10^3/uL (4.4-10.8)
[2022-11-12 14:38] LABS: Absolute Basophil Count 0.06 10^3/uL (0.0-0.2); Absolute Eosinophil Count 0.06 10^3/uL (0.0-0.7); Absolute Monocyte Count 0.51 10^3/uL (0.1-0.8); Absolute Neutrophil Count 10.31 10^3/uL (1.2-6.7)
[2022-11-12 15:01] LABS: Hemoglobin A1C 5.4 % (<5.7)
[2022-11-12 15:11] LABS: ALT 79 U/L (16-63); AST 22 U/L (15-37); Albumin 3.6 g/dL (3.4-5.0); Alkaline Phosphatase 87 U/L (46-116); Anion Gap 6.9 mmol/L (3-11); BUN 14 mg/dL (7-18); Bilirubin, Direct 0.2 mg/dL (0.0-0.2); CO2 28.1 mmol/L (21.0-32.0); CREATININE 1.2 mg/dL (0.70-1.30); Calcium 8.7 mg/dL (8.5-10.1); Chloride 107 mmol/L (98-107); Glucose 165 mg/dL (74-106); Potassium 3.8 mmol/L (3.5-5.1); Sodium 142 mmol/L (136-145); Total Protein 7.3 g/dL (6.4-8.2)
[2022-11-12 15:29] LABS: Calculated LDL 139 mg/dL (<100); Cholesterol 231 mg/dL (<200); HDL Cholesterol 61 mg/dL (40-60); Triglyceride 159 mg/dL (<150)
== END 2022-11-12 02:58 | disposition home or self-care (01) ==
LOC: LBO 02:57
PROVIDERS: PCP Student in an Organized Health Care Education/Training Program; Visit Provider Student in an Organized Health Care Education/Training Program
DX: K71.6 Toxic liver disease with hepatitis, not elsewhere classified (principal); L40.50 Arthropathic psoriasis, unspecified; L40.9 Psoriasis, unspecified; M77.9 Enthesopathy, unspecified; M79.641 Pain in right hand; M79.671 Pain in right foot; M79.89 Other specified soft tissue disorders; T50.905A Adverse effect of unspecified drugs, medicaments and biological substances, initial encounter; Z71.89 Other specified counseling; Z91.89 Other specified personal risk factors, not elsewhere classified; R73.09 Other abnormal glucose
CPT/HCPCS: 36415; 80048; 80061; 80076; 83036; 85025

== ENCOUNTER 2022-11-26 17:23 | Outpatient (CLI) | payer OTHER, SELFPAY ==
[2022-11-28 13:51] LABS: TB Interpretation Negative (Negative)
== END 2022-11-26 17:24 | disposition home or self-care (01) ==
LOC: LBO 17:24
PROVIDERS: PCP Student in an Organized Health Care Education/Training Program; Visit Provider Dermatology
DX: L40.0 Psoriasis vulgaris (principal); Z79.899 Other long term (current) drug therapy; Z11.1 Encounter for screening for respiratory tuberculosis
CPT/HCPCS: 36415; 86480

== ENCOUNTER 2023-05-17 02:42 | Outpatient (CLI) | payer OTHER, SELFPAY ==
[2023-05-17 09:53] LABS: HCT 44.5 % (40.0-50.0); HGB 15.5 g/dL (13.5-17.5); MCH 29.4 pg (27.0-33.0); MCHC 34.8 % (32.0-36.0); MCV 84 fL (80-95); MPV 9.6 fL (8.0-11.0); Platelet Count 247 10^3/uL (130-400); RBC 5.28 10^6/uL (4.36-5.78); RDW 12.3 % (11.8-14.1); RDW-SD 37.6 fL; WBC 6.46 10^3/uL (4.4-10.8)
[2023-05-17 10:51] LABS: ALT 37 U/L (16-63); AST 30 U/L (15-37); Albumin 3.8 g/dL (3.4-5.0); Alkaline Phosphatase 77 U/L (46-116); Anion Gap 9.9 mmol/L (3-11); BUN 11 mg/dL (7-18); Bilirubin, Direct 0.3 mg/dL (0.0-0.2); Bilirubin, Total 1.7 mg/dL (0.2-1.0); CO2 28.1 mmol/L (21.0-32.0); CREATININE 1.2 mg/dL (0.70-1.30); Calcium 9.2 mg/dL (8.5-10.1); Chloride 105 mmol/L (98-107); Estimated GFR 77.92 (mL/min/1.73m2); Glucose 108 mg/dL (74-106); Potassium 3.8 mmol/L (3.5-5.1); Sodium 143 mmol/L (136-145); Total Protein 7.4 g/dL (6.4-8.2)
[2023-05-19 16:00] LABS: Lab Add On Test DONE
[2023-05-19 16:43] LABS: Hemoglobin A1C 5.4 % (<5.7)
== END 2023-05-17 02:43 | disposition home or self-care (01) ==
LOC: LBO 02:43
PROVIDERS: PCP Student in an Organized Health Care Education/Training Program; Visit Provider Student in an Organized Health Care Education/Training Program
DX: R74.01 Elevation of levels of liver transaminase levels (principal); L40.9 Psoriasis, unspecified; R00.2 Palpitations; Z79.899 Other long term (current) drug therapy; Z87.891 Personal history of nicotine dependence; I10 Essential (primary) hypertension; Z91.89 Other specified personal risk factors, not elsewhere classified; R73.09 Other abnormal glucose
CPT/HCPCS: 36415; 80048; 80076; 85027; 83036; 83735

== ENCOUNTER 2024-11-12 01:57 | Outpatient (CLI) | payer OTHER, SELFPAY ==
--- NOTE | 2024-11-12 13:25 | DI.RAD_ITS ---
Exam(s) XR FOOT LT COMPLETE EXAM: XR FOOT LT COMPLETE CLINICAL HISTORY: Sharp pain at base of great toe,m79.673. TECHNIQUE: 2D digital imaging was performed. Three views. COMPARISON: No exams were available for comparison FINDINGS: BONES: No acute fracture is present. No bony destructive lesion is seen. JOINTS: No dislocation present. There are no significant degenerative changes. Plantar arch is nighat ntained. SOFT TISSUE: Normal. IMPRESSION: Unremarkable radiographs of the left foot. DATA REPOSITORY: RADIATION DOSE DELIVERED:
== END 2024-11-12 02:17 ==
LOC: DI 01:57
PROVIDERS: PCP Family Medicine; Visit Provider Family Medicine
DX: M79.672 Pain in left foot (principal)
CPT/HCPCS: 73630

== ENCOUNTER 2024-11-30 02:00 | Outpatient (CLI) | payer OTHER, SELFPAY ==
[2024-11-30 08:35] LABS: HGB 16.1 g/dL (13.5-17.5)
[2024-11-30 09:47] LABS: Anion Gap 8.2 mmol/L (3-11); BUN 13 mg/dL (7-18); CO2 27.8 mmol/L (21.0-32.0); CREATININE 1.1 mg/dL (0.70-1.30); Calcium 8.7 mg/dL (8.5-10.1); Calculated LDL 121 mg/dL (<100); Chloride 109 mmol/L (98-107); Cholesterol 202 mg/dL (<200); Estimated GFR 85.95 (mL/min/1.73m2); Glucose 98 mg/dL (74-106); HDL Cholesterol 49 mg/dL (>or=40); Potassium 4.1 mmol/L (3.5-5.1); Sodium 145 mmol/L (136-145); Triglyceride 161 mg/dL (<150); Vitamin B12 458 pg/mL (193-986)
[2024-11-30 11:03] LABS: Folate 3.6 ng/mL (8.6-20.0)
== END 2024-11-30 02:01 | disposition home or self-care (01) ==
PROVIDERS: Student in an Organized Health Care Education/Training Program; PCP Family Medicine; Visit Provider Family Medicine
DX: Z13.220 Encounter for screening for lipoid disorders (principal); Z79.899 Other long term (current) drug therapy; I10 Essential (primary) hypertension; K21.9 Gastro-esophageal reflux disease without esophagitis; L40.50 Arthropathic psoriasis, unspecified
CPT/HCPCS: 36415; 80048; 80061; 82607; 82746; 85018

== ENCOUNTER 2024-12-14 10:00 | Emergency (ER) | payer OTHER, SELFPAY ==
[2024-12-14 10:17] VITALS: BP 168/111; PULSE 83; RESP 14; TEMP 36.7; O2SAT 98
--- NOTE | 2024-12-14 10:30 | DI.RAD_ITS ---
Exam(s) XR ELBOW RT COMPLETE EXAM: XR ELBOW RT COMPLETE CLINICAL HISTORY: fall 2 days ago, ttp posterior, small laceration. TECHNIQUE: 2D digital imaging was performed of the left elbow. Three images were obtained. AP, lat eral and oblique views were obtained. COMPARISON: There are no priors for comparison. FINDINGS: BONES: No acute fracture is present. No bony destructive lesion is seen. JOINTS: The elbow is normally aligned. No joint effusion is seen. SOFT TISSUE: There is mild soft tissue swelling medially. IMPRESSION: No acute fracture or dislocation. DATA REPOSITORY: RADIATION DOSE DELIVERED:
--- NOTE | 2024-12-14 11:56 | W.ED.GENAD ---
Discharge Plan Disposition Patient Disposition: Home Condition: Stable Discharge Details Clinical Impression: Contusion of elbow, right, Elbow laceration Primary Care Provider: Gonzales Conklin ED Provider: Manuel Floyd Home Meds and New Rx's Prescriptions: Continued pantoprazole 40 mg tablet,delayed release (DR/EC) 40 mg PO DAILY Qty: 90 3RF amlodipine 2.5 mg tablet 2.5 mg PO DAILY Qty: 90 3RF ammonium lactate 12 % cream 1 applic topical QD-BID PRN (Reason: Dry irritated skin) Qty: 385 1RF Rx Instructions: Trial for focal Tx; as best dispensed/covered by insurance adalimumab 40 mg/0.8 mL pen injector kit 40 mg subcut Q2W Patient Comments: [facility] [place] [facility] [place] 03/21/23 Continue 40mg/0.8mL inject contents of 1 pen simultaneously every 2 weeks--SD folic acid 1 mg tablet 1 mg PO DAILY Qty: 90 1RF Discharge Instructions Instructions: Minor Contusion ED, Wound Care ED Additional Instructions: Please take ibuprofen 600 mg by mouth every 6-8 hours as needed for pain for the next few days. Please follow-up with your primary care physician. Return to the emergency department immediately for any worsening or new concerning symptoms. Discharge Data Discharge Date/Time-TO BE ENTERED AT DEPARTURE: 12/14/24 12:09 HPI General Mode of arrival: ambulatory. Date/Time Provider Initiated Documentation: 12/14/24 10:21. Limitations to Documentation: no limitations. Information obtained by: patient. HPI Narrative: 44-year-old male here with right elbow pain. Patient notes he slipped and fell on ice 2 days ago and impacted his right elbow. He notes pain with flexion extension posteriorly. No other injury sustained. No associated numbness or tingling. Related Data Home Medications ?Medication ?Instructions ?Recorded ?Confirmed adalimumab 40 mg/0.8 mL 40 mg subcut Q2W 03/22/23 12/14/24 subcutaneous pen kit amlodipine 2.5 mg tablet 2.5 mg PO DAILY #90 tabs 04/03/24 12/14/24 ammonium lactate 12 % topical cream 1 applic topical QD-BID PRN Dry 04/03/24 12/14/24 irritated skin #385 grams pantoprazole 40 mg tablet,delayed 40 mg PO DAILY #90 tabs 04/03/24 12/14/24 release folic acid 1 mg tablet 1 mg PO DAILY #90 tabs 11/30/24 12/14/24 Previous Rx's ?Medication ?Instructions ?Recorded amlodipine 2.5 mg tablet 2.5 mg PO DAILY #90 tabs 04/03/24 ammonium lactate 12 % topical cream 1 applic topical QD-BID PRN Dry 04/03/24 irritated skin #385 grams pantoprazole 40 mg tablet,delayed 40 mg PO DAILY #90 tabs 04/03/24 release folic acid 1 mg tablet 1 mg PO DAILY #90 tabs 11/30/24 Allergies Allergy/AdvReac Type Severity Reaction Status Date / Time methotrexate AdvReac Severe sick Verified 12/14/24 10:20 lisinopril AdvReac Mild felt like Verified 12/14/24 10:20 environmental allergies; URI General Stated Complaint: Orthopedic NENITA: 4 Review of Systems Musculoskeletal Musculoskeletal: Reports as per HPI Exam Skin Trauma: laceration (small 1cm laceration, healing, with no inflammatory changes posterior elbow) Extrem Right upper extremity: shoulder/upper arm Details: normal to inspection, elbow/forearm Details: tenderness Location: of the olecranon and wrist Details: normal to inspection Other: 2+ radial pulse, distal sensation and motor intact Course Vital Signs Vital signs: Vital Signs Temperature 36.7 C 12/14/24 10:17 Pulse 83 12/14/24 10:17 Respiratory Rate 14 12/14/24 10:17 Blood Pressure 168/111 H 12/14/24 10:17 Pulse Oximetry 98 12/14/24 10:17 Temperature 36.7 C 12/14/24 10:17 Temperature Source Oral 12/14/24 10:17 Pulse 83 12/14/24 10:17 Respiratory Rate 14 12/14/24 10:17 Blood Pressure 168/111 H 12/14/24 10:17 Blood Pressure Position Sitting 12/14/24 10:17 Pulse Oximetry 98 12/14/24 10:17 Pain Level 0 12/14/24 10:52 Medical Decision Making 44-year-old male here 2 days after slip and fall on ice with injury to his right elbow. Patient neurovascular intact distally. Considered fracture. X-ray of the elbow was reviewed and interpreted by radiology: Please see report, no acute fracture or dislocation. Suspect elbow contusion given negative x-ray. Elbow laceration was cleansed by patient and appears to be healing well. Supportive care recommended. Usual and customary discharge instructions were reviewed. Quality:[facility] Health Related Social Needs: No Data to Display [facility] All Active Problems Elbow laceration (Acute) Contusion of elbow, right (Acute) Folate deficiency (Acute ~11/2024) Long-term current use of proton pump inhibitor therapy (Acute) Family history of skin cancer (Chronic) Father, grandmother High risk medication use (Acute) Humira, so cbc/bmp/liver yearly.. Doing well on it (x 3 mos so far)! Impingement syndrome of right shoulder (Acute) Hypertension (Chronic) Hx elevated readings (last 2017) and today. Smoking, Fam Hx (+). Trial small does ACEi with possible increase PRN. Gastroesophageal reflux disease (Acute 07/20/14) Hx of bacterial pneumonia (Acute) Accepted PNA Vaccine today, 08/05/19 Back pain of lumbar region with sciatica (Acute) Lumbar Strain per [facility] (Fall 2017); Acts up @ times, but he works through it then stretches @ home. Hiatal hernia (Chronic 07/24/19) ON EGD at [facility] Tonsillar hypertrophy (Acute) Alcohol use (Acute) Psoriasis (Acute 07/20/14) Ins changing him to generic, Adalimumab; Humira helping (Dr. Rivas); Hx poor tolerance of methotrexate (nausea, hyperthermia, ill). Medical History Swelling of right foot Prox to 5th toe and along outer long arch Tobacco use QUIT [facility], 2021! Chewing tobacco to cut down on smoking, 05/2021 Deviated nasal septum Foot fracture, left 2013 Palpitations (07/20/14) Holter : frequent PVC Surgical History H/O right knee surgery (~11/2013) [facility] Cholecystectomy (04/24/12) Family History Father Skin cancer Depression Hypertension Mother Hypertension Social History Smoking/Tobacco Use Status: Former Tobacco Use Tobacco: How many years used: 22 Smokeless tobacco user: chewing tobacco Quit status: has quit before Smoking risk assessment performed?: Yes Alcohol Intake: current Alcohol Intake frequency: a few times a week Alcohol type: beer and hard liquor Drug use: Never Substance use type: does not use Adopted: No Caregiver/Support person: No Foster care: No Household members: spouse and children Housing: house Number of Children: 2 Communication Needs: None and Corrective Lenses Education Level: high school Details: 11th Do you need help understanding health information?: Rarely 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 Pets and animals: Yes Sexually active: Yes Do you think of yourself as: straight/heterosexual Current gender identity: male What type of physical activity do you participate in: walking and other Details: lots of walking at work Seatbelt use: sometimes Helmet use: Yes 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 heavy: No Water heater temp set <120 deg: No Working smoke detector in home: Yes Fire extinguisher in home: Yes Carbon monox detector in home: Yes Firearms in home: Yes Firearms unloaded and locked: Yes Do you feel safe at home: Yes Do you feel safe in your relationship?: Yes PAWSS Have you Been Recently Intoxicated or Drunk Within the Last 30 days?: No Have you Ever Experienced Previous Episodes of Alcohol Withdrawal?: No Have you ever Experienced Withdrawal Seizures?: No Have you ever Experienced Delirium Tremens(DT)s?: No Have you ever undergone Alcohol Rehabilitation Treatment (i.e, inpt ot outpatient treatment programs)?: No Have you ever Experienced Blackouts?: No Have you ever Combined Alcohol with other Downers within the last 90 days?: No Have you ever Combined Alcohol with any other Substance of Abuse during the last 90 days?: No Positive Blood Alcohol level on Presentation? [PCS.BAL]: No Evidence of Increased Autonomic Activity (i.e. HR>120, tremor, sweating, agitation, nausea)?: No Result: 0
== END 2024-12-14 12:09 | disposition home or self-care (01) ==
PROVIDERS: Emergency Provider Student in an Organized Health Care Education/Training Program; PCP Family Medicine
DX: S50.01XA Contusion of right elbow, initial encounter (principal); S51.011A Laceration without foreign body of right elbow, initial encounter; I10 Essential (primary) hypertension; Z87.891 Personal history of nicotine dependence; W00.0XXA Fall on same level due to ice and snow, initial encounter; Y93.01 Activity, walking, marching and hiking; Y92.89 Other specified places as the place of occurrence of the external cause
CPT/HCPCS: 99283; 73080